=== PATIENT | female | born 1980 | race Caucasian/White ===

== ENCOUNTER 2018-04-06 09:00 | Outpatient (CLI) | payer OTHER ==
[~2018-04-06 09:00] MED LIST: AFLURIA 2045 MCG/0.9; CODE1TAB37 PO; COLACE100 MG PO; NAPROXEN500 MG PO; PRENATAL CAPLE1 EACH PO; SYNTHROID112 MCG PO
== END 2018-04-06 09:04 | disposition home or self-care (01) ==
LOC: SONOGRAMA 09:00
DX: E04.1 Nontoxic single thyroid nodule (principal)

== ENCOUNTER 2018-09-15 11:05 | Outpatient (CLI) | payer OTHER | END 2018-09-15 11:13 | disposition home or self-care (01) | LOC: SONOGRAMA 11:05 | DX: E04.2 Nontoxic multinodular goiter (principal) ==

== ENCOUNTER 2020-02-17 05:54 | Day surgery (SDC) | payer OTHER ==
[~2020-02-17 05:54] MED LIST changes: +SYNTHROID88 MCG PO
[2020-02-17] MEDS ORDERED: Tylenol #3 PO (08:49)
[2020-02-17] MEDS ORDERED: MORGIDOX100 MG PO (08:49)
== END 2020-02-17 12:40 | disposition home or self-care (01) ==
LOC: CIR.AMB 05:54
PROVIDERS: ATTEND Obstetrics & Gynecology
DX: N84.0 Polyp of corpus uteri (principal); D25.0 Submucous leiomyoma of uterus; Z20.828 Contact with and (suspected) exposure to other viral communicable diseases